=== PATIENT | female | born 1945 | race Caucasian/White ===

== ENCOUNTER → 2016-09-03 | Outpatient (CLI) | payer MEDICARE, BC, OTHER ==
--- NOTE | 2016-09-03 15:21 | REP ---
LOW-DOSE LUNG SCREENING CT: 09/03/2016. Comparison chest x-ray 09/28/2011. Clinical history: 55 pack year smoker. Axial thin-section low-dose lung window CT images were provided. There is volume loss in the right hemithorax. Pleural thickening with circumferential calcific pleural plaque anterior in the lateral and posterior aspects of the right hemithorax. This spares the deep pleural sulcus laterally. Some subpleural fat associated with this. This chronic pleural thickening is only on the right side and represents calcific fibrothorax, is contributing to volume loss. In the deep sulcus of the right lower lobe, there is a 12 x 9 mm smoothly marginated solid nodule. I do not see other smooth nodules in that lung. There are areas of scarring or chronic atelectasis in the right lower lobe with some stranding to the pleura. In the left lung, I do not see pleural thickening or plaque, pulmonary nodule, effusion or acute infiltrate. Heart size mildly prominent with left atrial enlargement. Some degenerative changes are suggested in the spine. Impression: 1. 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 This may be due to old empyema or other inflammatory process. Asbestos exposure could also be considered. 2. Right lower lobe on image 78 shows a 12 x 9 mm smoothly marginated nodule which is solid by CT attenuation value. There are other areas of fibrotic scarring and stranding to the pleura. No definite effusion. Some subpleural fat noted. 3. Right lung clear. 4. Heart enlarged. 5. This study is best categorized as LungRADS 4A suspicious, solid nodule. Follow-up CT recommended in 3 months or PET/CT may be considered. Probability of malignancy in this patient population with nodules of this size is 5-15%. Pulmonary consultation might also be considered. Signed by Sean Farah MD 09/03/2016 04:21 P
== END ==
LOC: M RAD 10:42
PROVIDERS: ATTEND Nurse Practitioner Family
DX: Z12.2 Encounter for screening for malignant neoplasm of respiratory organs (principal); F17.210 Nicotine dependence, cigarettes, uncomplicated; R91.8 Other nonspecific abnormal finding of lung field; J98.4 Other disorders of lung

== ENCOUNTER → 2016-09-16 | Outpatient (CLI) | payer MEDICARE, BC, OTHER ==
--- NOTE | 2016-09-16 18:07 | REP ---
Whole body PET CT scan: The the patient had a right lower lobe lung nodule identified on the recent low-dose lung screening chest CT dated 09/[birth year]/1926. On the screening chest CT there was also circumferential calcified pleural plaque and pleural pleural thickening in the right hemithorax accompanied by diffuse volume loss in the right hemithorax. Findings are nonspecific and asbestos exposure versus empyema versus combination are some diagnostic considerations on the prior CT. The right lower lobe lung nodule is considered suspicious category 4A. Whole body PET CT scanning is performed from the skull base to the upper thighs. Neck and supraclavicular areas: There is artifactual uptake in the arytenoids. No other foci are identified. Chest: The known right lower lobe lung nodule demonstrates no F D G avidity. The standard uptake value is 1.2. There are no other foci in the chest. Abdomen, pelvis and upper thighs: There are no hypermetabolic foci. There is nonspecific bowel uptake. Impression: There are no hypermetabolic foci. The known right lower lobe lung nodule demonstrates no FDG avidity. The study is performed with 9.0 mCi of F 18 FDG. Signed by Faheem Marmolejo MD 09/16/2016 05:59 P
== END ==
LOC: M RAD 14:19
PROVIDERS: ATTEND Internal Medicine Pulmonary Disease
DX: R91.1 Solitary pulmonary nodule (principal)
CPT/HCPCS: 78815; A9552